=== PATIENT | male | born 1980 | race Caucasian/White ===

== ENCOUNTER 2019-08-16 17:44 | Emergency (ER) | payer SELFPAY ==
[2019-08-16] MEDS ORDERED: Sodium Chloride 0.9% 10 ML Syringe FLUSH PRN (18:03)
--- NOTE | 2019-08-16 19:53 | EDM.PDOC ---
ED HPI GENERAL MEDICAL PROBLEM - General Chief Complaint: Chest Pain Stated Complaint: [facility] Source of Information: Reports: Patient - History of Present Illness INITIAL COMMENTS - FREE TEXT/NARRATIVE: Patient was never seen by me. He was brought here by police officers as he was incarcerated at the local law enforcement center. He was complaining of chest pain which brought him a ride to the emergency department. The place properly decided that he was no longer under arrest and that he could be released once we were finished in the ED. Once the patient heard this and identified that his ECG was normal he elected to leave the department AMA. He was therefore never seen by me. I did order repeat his ECG after he had left the department. Patient refused all labs and no further interventions. Left Middle Chest Pain Score (Numeric/FACES): 10 - Related Data Allergies Allergy/AdvReac Type Severity Reaction Status Date / Time No Known Allergies Allergy Verified 08/16/19 17:55 Home Meds: Home Meds . [No Known Home Meds] 08/16/19 [History] Social & Family History - Tobacco Use Smoking Status *Q: Current Every Day Smoker Years of Tobacco use: 10 Packs/Tins Daily: 0.5 - Caffeine Use Caffeine Use: Reports: None - Recreational Drug Use Recreational Drug Use: No EKG INTERPRETATION EKG Date: 08/16/19 Time: 18:02 Rhythm: NSR Rate (Beats/Min): 85 Russell: Normal P-Wave: Present (Borderline short GA interval) QRS: Other (Nonspecific intraventricular conduction delay. Slightly decreased voltage in the limb leads.) ST-T: Other (T-wave flattening in leads 3 and aVL.) QT: Prolonged (Minimally prolonged) EKG Interpretation Comments: Borderline ECG Course - Vital Signs Last Recorded V/S: Last Vital Signs Temp 36.1 C 08/16/19 17:45 Pulse 81 08/16/19 17:45 Resp 20 08/16/19 17:45 BP 172/99 H 08/16/19 17:45 Pulse Ox 95 08/16/19 17:45 - Orders/Labs/Meds Orders: Active Orders 24 hr Category Date Time Status EKG Documentation Completion [RC] ASDIRECTED Care 08/16/19 18:03 Active Saline Lock Insert [OM.PC] Routine Oth 08/16/19 18:03 Ordered EKG 12 Lead [EK] Stat Ther 08/16/19 18:02 Ordered Meds: Medications Discontinued Medications Generic Name Dose Route Start Last Admin Trade Name Freq PRN Reason Stop Dose Admin Sodium Chloride 10 ml 08/16/19 18:03 Saline Flush FLUSH ASDIRECTED PRN Keep Vein Open Departure - Departure Time of Disposition: 17:45 Disposition: Against Medical Advice 07 Referrals: PCP,Unknown [Primary Care Provider] - Forms: ED Department Discharge - My Orders Last 24 Hours: My Active Orders 08/16/19 18:02 EKG 12 Lead [EK] Stat 08/16/19 18:03 EKG Documentation Completion [RC] ASDIRECTED Saline Lock Insert [OM.PC] Routine - Assessment/Plan Last 24 Hours: My Active Orders 08/16/19 18:02 EKG 12 Lead [EK] Stat 08/16/19 18:03 EKG Documentation Completion [RC] ASDIRECTED Saline Lock Insert [OM.PC] Routine
== END 2019-08-16 18:15 | disposition left against medical advice (07) ==
LOC: JD.ED 17:44
DX: Z53.21 Procedure and treatment not carried out due to patient leaving prior to being seen by health care provider (principal); F17.210 Nicotine dependence, cigarettes, uncomplicated
CPT/HCPCS: 93005; 99285-25